=== PATIENT | female | born 1945 | race Caucasian/White ===

== ENCOUNTER 2018-12-18 23:39 | Emergency (ER) | payer MEDICARE ==
--- NOTE | 2018-12-19 00:16 | ED Physician Chart ---
ED Chief Complaint/HPI - Patient Information Date Seen:: 12/19/18 Time Seen:: 00:11 Chief Complaint:: Right ankle pain History of Present Illness:: 73 yo female sprained right ankle inversionly last night. Subsequently, the ankle became swollen with painful ROM and limited ROM. Pt could not put weight on the right ankle. The swelling became worse despite icing and elevation of her RLE. Pt did not drive and called 911 under direction of her doctor. Pt was then brought by ambulance to ER. Allergies:: Allergies Allergy/AdvReac Type Severity Reaction Status Date / Time codeine Allergy Verified 12/18/18 23:56 sulfamethoxazole Allergy Verified 12/18/18 23:56 [From Bactrim] trimethoprim [From Bactrim] Allergy Verified 12/18/18 23:56 Vitals:: Vital Signs - 8 hr 12/18/18 23:45 Temp 98.3 F HR 84 RR 18 BP 189/80 O2 Sat % 99 ED Review of Systems - Review of Systems General/Constitutional: No fever, No chills Skin: No rash Head: No headache Eyes: No pain ENT: No nasal drainage Neck: No neck pain Cardio Vascular: No chest pain Pulmonary: No SOB GI: No nausea, No vomiting G/U: Dysuria, Frequency Musculoskeletal: Bone or joint pain Psychiatric: Depression, Anxiety Neurological: No focal symptoms ED Past Medical History - Past Medical History Past Medical History: HTN, Other (UTI) Social History: Non Smoker, No Alcohol, No Drug Use Surgical History: None Psychiatricy History: Depression, Other (Anxiety) Family Medical History - Family Member Mother History Unknown: Yes ED Physical Exam - Physical Examination General/Constitutional: Awake, Alert Head: Atraumatic Eyes: PERRL, EOMI Skin: No skin lesions ENMT: Nasal exam nl Neck: No nuchal rigidity Respiratory: Clear to Auscultation, No Wheeze/Rhonchi/Rales Cardio Vascular: RRR, No murmur, gallop, rubs, NL S1 S2 GI: No tenderness/rebounding/guarding Extremities: normal strength in all extremities Other Extremities comments:: Right ankle and foot swelling, tenderness at lateral malleolus. ED Labs/Radiology/EKG Results - Lab Results Results: Laboratory Last Values Urine Source CLEAN C 12/19/18 00:11 Urine Color YELLOW 12/19/18 00:11 Urine Clarity HAZY (CLEAR) 12/19/18 00:11 Urine pH 7.0 (4.6 - 8.0) 12/19/18 00:11 Ur Specific [place] 1.010 (1.005-1.030) 12/19/18 00:11 Urine Protein NEGATIVE mg/dL (NEGATIVE) 12/19/18 00:11 Urine Glucose (UA) NEGATIVE mg/dL (NEGATIVE) 12/19/18 00:11 Urine Ketones NEGATIVE mg/dL (NEGATIVE) 12/19/18 00:11 Urine Blood NEGATIVE (NEGATIVE) 12/19/18 00:11 Urine Nitrate NEGATIVE (NEGATIVE) 12/19/18 00:11 Urine Bilirubin NEGATIVE (NEGATIVE) 12/19/18 00:11 Urine Urobilinogen 0.2 E.U./dL (0.2 - 1.0) 12/19/18 00:11 Ur Leukocyte Esterase MODERATE (NEGATIVE) H 12/19/18 00:11 Urine RBC 0-2 /hpf (0-5) 12/19/18 00:11 Urine WBC 6-10 /hpf (0-5) H 12/19/18 00:11 Ur Epithelial Cells FEW /lpf (FEW) 12/19/18 00:11 Urine Bacteria FEW /hpf (NONE SEEN) 12/19/18 00:11 ED Assessment - Assessment General Assessment: Right ankle sprain Sprained lateral ligament Hypertension Urinary tract infection Assessment/Comments:: Right ankle X ray Clonidine 0.1 mg PO Toradol 30 mg IM Applied right walking boot ED Septic Shock - . Is Septic Shock (SBP<90, OR Lactate>4 mmol\L) present?: No - <6hrs of presentation: Vital Signs: Vital Signs - 8 hr 12/18/18 23:45 Temp 98.3 F HR 84 RR 18 BP 189/80 O2 Sat % 99 ED Reassessment (Disposition) - Reassessment Reassessment Condition:: Improved - Aftercare/Follow up Instructions Notes:: D/c home F/u PCP or return to ER if symptoms worsen Medication Prescribed:: Keflex 500 mg, PO, bid x 5 days - Patient Disposition Discharge/Transfer:: Home
[2018-12-19 00:26] LABS: URINE SOURCE CLEAN C
[2018-12-19 00:28] LABS: URINE BILIRUBIN NEGATIVE (NEGATIVE); URINE BLOOD NEGATIVE (NEGATIVE); URINE GLUCOSE (UA) NEGATIVE (NEGATIVE); URINE KETONE NEGATIVE (NEGATIVE); URINE LEUKOCYTE ESTERASE MODERATE (NEGATIVE); URINE NITRATE NEGATIVE (NEGATIVE); URINE PROTEIN NEGATIVE (NEGATIVE); URINE UROBILINOGEN 0.2 E.U./dL (0.2 - 1.0)
[2018-12-19 01:07] LABS: URINE BACTERIA FEW /hpf (NONE SEEN); URINE CLARITY HAZY (CLEAR); URINE COLOR YELLOW; URINE EPITHELIAL CELLS FEW /lpf (FEW); URINE MICROSCOPIC INDICATED? YES; URINE RBC 0-2 /hpf (0-5)
--- NOTE | 2018-12-19 09:11 | Diagnostic Imaging Report ---
Right ankle (3 views) HISTORY: Pain, trauma Soft tissue swelling particularly over the lateral aspect of the ankle. No acute bony abnormalities. No fractures. Spur formation seen off the plantar aspect of the posterior calcaneus. IMPRESSION: 1. Soft tissue swelling 2. No acute bony abnormalities 2. Small calcaneal spur formation
== END 2018-12-19 01:54 | disposition home or self-care (01) ==
LOC: ER 23:39
DX: S93.491A Sprain of other ligament of right ankle, initial encounter (principal); I10 Essential (primary) hypertension; N39.0 Urinary tract infection, site not specified; F32.9 Major depressive disorder, single episode, unspecified; Z88.2 Allergy status to sulfonamides; Z88.5 Allergy status to narcotic agent; X50.1XXA Overexertion from prolonged static or awkward postures, initial encounter; Y93.89 Activity, other specified; Y92.89 Other specified places as the place of occurrence of the external cause; Y99.8 Other external cause status
CPT/HCPCS: 99284; 96372; 81001; 73610; J1885; Z7610